=== PATIENT | male | born 1975 | race Caucasian/White ===

== ENCOUNTER 2019-10-09 03:22 | Emergency (ER) | payer OTHER ==
[~2019-10-09] VITALS: Ht 182.9 cm; Wt 111.1 kg
[~2019-10-09 03:22] MED LIST: ALBIPROI INH; AMIT75 PO; AMOX500 PO; AMOX875 PO; CALPRATL TP; CEPH500 PO; CITA20 PO; CRUTCH3 USE; CYCL10 PO; DEXGUASY PO; DICY20 PO; DIPH25; GLYB1.5 PO; HYDACE5 PO; IBUP600 PO; LAMO25 PO; LISI20 PO; LISI5 PO; LORA10ER PO; META400 PO; METF500 PO; NAPR500 PO; NAPR550 PO; NEOPOLHYDS OT; OMEP20ER PO; ONDA4ODT MM; OTC MEDS; PRED20 PO; PROC10 PO; PROM25 PO; PROM25S PR; RXCEPH500 PO; RXDIPATR PO; RXNAPNA550 PO; RXTRAM50 PO; SIMV5 PO; SULTRIDS PO; TRAM50 PO; TRAZ100 PO; TYLENOL
[2019-10-09] MEDS ORDERED: VOLTAREN100 GM TOP (03:51)
== END 2019-10-09 04:11 | disposition home or self-care (01) ==
LOC: ER 03:22
DX: M25.511 Pain in right shoulder (principal); Z88.5 Allergy status to narcotic agent; Z79.899 Other long term (current) drug therapy; F17.200 Nicotine dependence, unspecified, uncomplicated; E11.9 Type 2 diabetes mellitus without complications; F31.9 Bipolar disorder, unspecified
CPT/HCPCS: 96372; 99283-25; J1885

== ENCOUNTER → 2020-07-24 | Outpatient (CLI) | payer OTHER ==
[~2020-07-24] MED LIST changes: +ACET500 PO; +Celexa40 MG PO; +LAMICTAL5 M1; +LAMO100 PO; +LOPE2C PO; +TRIA15CR3; +VOLTAREN100 GM TOP
== END | disposition home or self-care (01) ==
LOC: LAB SHORT 08:52 → LAB EV 08:52
DX: L73.9 Follicular disorder, unspecified (principal)
CPT/HCPCS: 87070; 87077; 87147; 87186; 87205

== ENCOUNTER 2021-03-22 18:47 | Emergency (ER) | payer OTHER ==
[~2021-03-22] VITALS: Ht 182.9 cm; Wt 114.3 kg
[2021-03-22] MEDS ORDERED: LIDO700A20 TOP (19:20)
== END 2021-03-22 19:40 | disposition home or self-care (01) ==
LOC: ER 18:47
DX: S39.012A Strain of muscle, fascia and tendon of lower back, initial encounter (principal); E11.9 Type 2 diabetes mellitus without complications; Z79.899 Other long term (current) drug therapy; Z88.5 Allergy status to narcotic agent
CPT/HCPCS: 96372; 99283-25; A9270; J1885

== ENCOUNTER 2022-01-29 08:47 | Day surgery (SDC) | payer OTHER ==
[~2022-01-29] VITALS: Ht 182.9 cm; Wt 127.9 kg
[~2022-01-29 08:47] MED LIST changes: +LIDO700A20 TOP
== END 2022-01-29 13:32 | disposition home or self-care (01) ==
LOC: ORSCSDS 08:47
PROVIDERS: Orthopaedic Surgery
PROC: 0SBD4ZZ Excision of Left Knee Joint, Percutaneous Endoscopic Approach (ICD-10-PCS; principal; 2022-01-29 10:45)
DX: S83.512A Sprain of anterior cruciate ligament of left knee, initial encounter (principal); G47.33 Obstructive sleep apnea (adult) (pediatric); F31.9 Bipolar disorder, unspecified; K21.9 Gastro-esophageal reflux disease without esophagitis; E66.9 Obesity, unspecified; Z68.38 Body mass index [BMI] 38.0-38.9, adult; Z87.891 Personal history of nicotine dependence; Z79.899 Other long term (current) drug therapy
CPT/HCPCS: J0690; J1100; J1885; J2405; J2704; J3010

== ENCOUNTER → 2022-07-10 | Outpatient (CLI) | payer OTHER ==
[2022-07-10 11:41] LABS: BASOPHILS ABSOLUTE AUTO 0.01 K/mm3 (0.00-0.23); BASOPHILS PERCENT AUTO 0 % (0-2); EOSINOPHILS ABSOLUTE AUTO 0.12 K/mm3 (0.00-0.68); EOSINOPHILS PERCENT AUTO 3 % (0-6); Hematocrit 42.5 % (37.0-53.0); Hemoglobin 14.9 g/dL (13.5-17.5); IMMATURE GRAN ABSOLUTE AUTO 0.01 K/mm3 (0.00-0.10); IMMATURE GRAN PERCENT AUTO 0 % (0-1); LYMPHOCYTES ABSOLUTE AUTO 1.32 K/mm3 (0.84-5.20); LYMPHOCYTES PERCENT AUTO 34 % (21-46); MONOCYTES ABSOLUTE AUTO 0.38 K/mm3 (0.16-1.47); MONOCYTES PERCENT AUTO 10 % (4-13); Mean Corpuscular HGB 31.4 pg (26.0-34.0); Mean Corpuscular HGB Conc 35.1 g/dL (31.5-36.5); Mean Corpuscular Volume 90 fL (80-100); Mean Platelet Volume 9.3 fL (9.1-12.4); NEUTROPHILS ABSOLUTE AUTO 2.05 K/mm3 (1.96-9.15); NEUTROPHILS PERCENT AUTO 53 % (41-73); Platelet Count 201 K/mm3 (150-400); RDW Coefficient Variation 12.3 % (11.7-14.2); RDW Standard Deviation 40.1 fL (35.1-46.3); Red Blood Cell Count 4.75 M/mm3 (4.30-5.90); White Blood Cell Count 3.89 K/mm3 (4.00-11.30)
[2022-07-10 11:50] LABS: Albumin, Blood 3.8 g/dL (3.4-5.0); Bilirubin, Total 0.4 mg/dL (0.1-1.0); Bun/Creatinine Ratio 15.5 (12.0-20.0); Calcium, Blood 8.6 mg/dL (8.5-10.1); Creatinine, Blood 1.1 mg/dL (0.60-1.20); Globulin, Blood 3.7 g/dL (2.2-4.0); Potassium, Blood 3.8 mmol/L (3.5-5.5); Total Protein, Blood 7.5 g/dL (6.4-8.2)
== END ==
LOC: LAB 11:35 → LAB SHORT 11:35
PROVIDERS: General Practice
DX: E86.0 Dehydration (principal)
CPT/HCPCS: 80053; 82150; 85025

== ENCOUNTER → 2022-09-02 | Outpatient (CLI) | payer OTHER | LOC: PLD 14:00 → LAB SHORT 14:00 | DX: R21 Rash and other nonspecific skin eruption (principal) | CPT/HCPCS: 88312 ==

== ENCOUNTER 2023-12-17 18:10 | Emergency (ER) | payer OTHER ==
[~2023-12-17] VITALS: Ht 182.9 cm; Wt 131.5 kg
[~2023-12-17 18:10] MED LIST changes: +HYDROXYZINE HYDROCHLORIDE; +OMEPRAZOL RX 20MG CA
[2023-12-17 18:27] VITALS: BP 141/84
[2023-12-17] MEDS ORDERED: Ketorolac Tromethamine 30mg Vial IM ONE (20:40)
[2023-12-17] MEDS ORDERED: Naprosyn500 MG PO (20:41)
== END 2023-12-17 20:56 | disposition home or self-care (01) ==
LOC: ER 18:10
DX: M25.562 Pain in left knee (principal); G89.29 Other chronic pain; E11.9 Type 2 diabetes mellitus without complications; F31.9 Bipolar disorder, unspecified; Z88.5 Allergy status to narcotic agent; Z79.899 Other long term (current) drug therapy; Z87.891 Personal history of nicotine dependence; Z98.890 Other specified postprocedural states
CPT/HCPCS: 96372; 99283-25; J1885

== ENCOUNTER → 2024-03-07 | Outpatient (CLI) | payer OTHER ==
[~2024-03-07] MED LIST changes: +Naprosyn500 MG PO
[2024-03-07 17:28] LABS: Body Fluid Crystals NEG (NEGATIVE)
[2024-03-07 17:57] LABS: RBC Count, Synovial Fluid 206 /mm3 (0-0); WBC Count, Synovial Fluid 139 /mm3 (0-180)
[2024-03-07 18:56] LABS: Lymphs, Synovial Fluid 30 % (0-15); Monocytes/Macrophages, Synovia 60 % (0-65); Neutrophils, Synovial Fluid 10 % (0-24)
[2024-03-07 19:02] LABS: Appearance, Synovial Fluid Hazy (Clear); Color, Synovial Fluid Yellow (None-P Yel)
== END | disposition home or self-care (01) ==
LOC: LAB SHORT 15:50
PROVIDERS: Orthopaedic Surgery
DX: M17.12 Unilateral primary osteoarthritis, left knee (principal)
CPT/HCPCS: 87070; 87075; 87205; 89051; 89060

== ENCOUNTER 2024-12-02 15:41 | Emergency (ER) | payer OTHER ==
[~2024-12-02] VITALS: Ht 182.9 cm; Wt 117.5 kg
[2024-12-02 15:53] VITALS: BP 128/86
[2024-12-02] MEDS ORDERED: METFORMIN HCL500 M3 PO (16:13)
[2024-12-02] MEDS ORDERED: [UNRECOGNIZED DRUG - CODE] PO (16:13)
[2024-12-02] MEDS ORDERED: CELEXA40 M9 PO (16:13)
[2024-12-02] MEDS ORDERED: LAMOTRIGINE100 M1 PO (16:13)
[2024-12-02] MEDS ORDERED: OMEP20ER PO (16:13)
[2024-12-02] MEDS ORDERED: Diphth,Pertuss(Acell),Tet Vac 0.5 ML VIAL IM ONE (17:10)
== END 2024-12-02 17:53 | disposition home or self-care (01) ==
LOC: ER 15:41
DX: S61.211A Laceration without foreign body of left index finger without damage to nail, initial encounter (principal); W26.0XXA Contact with knife, initial encounter; Z87.891 Personal history of nicotine dependence; Z79.899 Other long term (current) drug therapy; Z88.5 Allergy status to narcotic agent
CPT/HCPCS: 12001; 90471; 90715; 99282-25

== ENCOUNTER 2024-12-07 11:36 | Emergency (ER) | payer OTHER ==
[~2024-12-07] VITALS: Ht 182.9 cm; Wt 117.5 kg
[~2024-12-07 11:36] MED LIST changes: +CELEXA40 M9 PO; +LAMOTRIGINE100 M1 PO; +METFORMIN HCL500 M3 PO; +[UNRECOGNIZED DRUG - CODE] PO
[2024-12-07 12:15] VITALS: BP 133/85
[2024-12-07 13:22] LABS: BASOPHILS ABSOLUTE AUTO 0.01 K/mm3 (0.00-0.23); BASOPHILS PERCENT AUTO 0 % (0-2); EOSINOPHILS ABSOLUTE AUTO 0.02 K/mm3 (0.00-0.68); EOSINOPHILS PERCENT AUTO 1 % (0-6); Hematocrit 33.6 % (37.0-53.0); Hemoglobin 11.7 g/dL (13.5-17.5); IMMATURE GRAN ABSOLUTE AUTO 0.01 K/mm3 (0.00-0.10); IMMATURE GRAN PERCENT AUTO 0 % (0-1); LYMPHOCYTES PERCENT AUTO 19 % (21-46); MONOCYTES ABSOLUTE AUTO 0.34 K/mm3 (0.16-1.47); MONOCYTES PERCENT AUTO 8 % (4-13); Mean Corpuscular HGB 31.6 pg (26.0-34.0); Mean Corpuscular HGB Conc 34.8 g/dL (31.5-36.5); Mean Corpuscular Volume 91 fL (80-100); Mean Platelet Volume 9.4 fL (9.1-12.4); NEUTROPHILS PERCENT AUTO 73 % (41-73); Platelet Count 188 K/mm3 (150-400); RDW Coefficient Variation 12.1 % (11.7-14.2); RDW Standard Deviation 40.6 fL (35.1-46.3); White Blood Cell Count 4.28 K/mm3 (4.00-11.30)
[2024-12-07 13:58] LABS: Albumin/Globulin Ratio 0.7 (0.8-1.8); Bilirubin, Total 0.4 mg/dL (0.1-1.0); Bun/Creatinine Ratio 14.7 (12.0-20.0); Calcium, Blood 8.6 mg/dL (8.5-10.1); Creatinine, Blood 1.02 mg/dL (0.60-1.20); Globulin, Blood 4.5 g/dL (2.2-4.0); Potassium, Blood 3.9 mmol/L (3.5-5.5); Total Protein, Blood 7.5 g/dL (6.4-8.2)
== END 2024-12-07 14:13 | disposition home or self-care (01) ==
LOC: ER 11:36
PROVIDERS: Student in an Organized Health Care Education/Training Program
DX: L03.012 Cellulitis of left finger (principal); S60.022A Contusion of left index finger without damage to nail, initial encounter; W26.0XXA Contact with knife, initial encounter; Z88.5 Allergy status to narcotic agent; Z79.899 Other long term (current) drug therapy; Z79.84 Long term (current) use of oral hypoglycemic drugs; E11.9 Type 2 diabetes mellitus without complications; F17.290 Nicotine dependence, other tobacco product, uncomplicated; F17.220 Nicotine dependence, chewing tobacco, uncomplicated
CPT/HCPCS: 80053; 85025; 99283

== ENCOUNTER 2024-12-14 08:54 | Inpatient (IN) | payer OTHER ==
[~2024-12-14] VITALS: Ht 182.9 cm; Wt 117.5 kg
[2024-12-14] VITALS (13 sets, daily range): BP systolic 113–160; BP diastolic 72–99
[2024-12-14] MEDS ORDERED: Ketorolac Tromethamine 15mg Vial IV ONE (09:45)
[2024-12-14] MEDS ORDERED: NS 1,000 ML IV SCH (09:45)
[2024-12-14 10:10] LABS: BASOPHILS ABSOLUTE AUTO 0.01 K/mm3 (0.00-0.23); BASOPHILS PERCENT AUTO 0 % (0-2); EOSINOPHILS ABSOLUTE AUTO 0.03 K/mm3 (0.00-0.68); EOSINOPHILS PERCENT AUTO 1 % (0-6); Hematocrit 34.1 % (37.0-53.0); IMMATURE GRAN ABSOLUTE AUTO 0.03 K/mm3 (0.00-0.10); IMMATURE GRAN PERCENT AUTO 1 % (0-1); LYMPHOCYTES PERCENT AUTO 39 % (21-46); MONOCYTES ABSOLUTE AUTO 0.45 K/mm3 (0.16-1.47); MONOCYTES PERCENT AUTO 11 % (4-13); Mean Corpuscular HGB 31.2 pg (26.0-34.0); Mean Corpuscular HGB Conc 35.2 g/dL (31.5-36.5); Mean Corpuscular Volume 89 fL (80-100); Mean Platelet Volume 8.7 fL (9.1-12.4); NEUTROPHILS ABSOLUTE AUTO 1.97 K/mm3 (1.96-9.15); NEUTROPHILS PERCENT AUTO 48 % (41-73); Platelet Count 277 K/mm3 (150-400); RDW Standard Deviation 38.7 fL (35.1-46.3); Red Blood Cell Count 3.85 M/mm3 (4.30-5.90); White Blood Cell Count 4.09 K/mm3 (4.00-11.30)
[2024-12-14 10:41] LABS: Albumin, Blood 3.4 g/dL (3.4-5.0); Albumin/Globulin Ratio 0.8 (0.8-1.8); Bilirubin, Total 0.3 mg/dL (0.1-1.0); Bun/Creatinine Ratio 20.2 (12.0-20.0); C-REACTIVE PROTEIN, EXT RANGE 0.882 mg/dL (0.000-0.300); Calcium, Blood 9.4 mg/dL (8.5-10.1); Creatinine, Blood 0.94 mg/dL (0.60-1.20); Globulin, Blood 4.4 g/dL (2.2-4.0); Potassium, Blood 4.3 mmol/L (3.5-5.5); Total Protein, Blood 7.8 g/dL (6.4-8.2)
[2024-12-14] MEDS ORDERED: Ampicillin Sod/Sulbactam Sod 1.5 GM in NS 100 ML IV ONE (11:25)
[2024-12-14] MEDS ORDERED: Ondansetron HCl 2 MG / ML 2ML Vial IV PRN (12:45)
[2024-12-14] MEDS ORDERED: FLU VACC TS2024-25(6MOS UP)/PF 45 MCG/0.5 ML SYRINGE IM PRN (12:45)
[2024-12-14] MEDS ORDERED: Ampicillin Sod/Sulbactam Sod 3 GM in NS 100 ML IV SCH (12:49)
[2024-12-14] MEDS ORDERED: Lactated Ringer's 1,000 ML IV SCH (13:05)
[2024-12-14] MEDS ORDERED: propofoL 20 ML IV ONE (14:15)
[2024-12-14] MEDS ORDERED: Lidocaine HCl 2% 20 ML MDV ONE (14:16)
[2024-12-14] MEDS ORDERED: FentaNYL Citrate 50 MCG/ML 2 ML Injection ONE (14:16)
[2024-12-14] MEDS ORDERED: Phenylephrine HCl 100 MCG/ML-NS 10MLSYR (1MG/10ML) ONE (14:20)
[2024-12-14] MEDS ORDERED: Ketorolac Tromethamine 30mg Vial ONE (14:28)
[2024-12-14] MEDS ORDERED: HYDROmorphone HCl/Pf 1MG SYR ONE ×2 (14:41→14:42)
[2024-12-14] MEDS ORDERED: Ketorolac Tromethamine 15mg Vial IV PRN (16:00)
[2024-12-14] MEDS ORDERED: NS 250 ML IV PRN (16:50)
--- NOTE | 2024-12-14 16:54 | NUR ---
POST OP S/P LEFT INDEX FINGER I&D. KITTY WRAP IS CDI AND GRAHAM ELEVATED ON PILLOWS. PT REPORTS MILD THROBBING, BUT DECLINES NEED FOR PAIN MEDICATIONS. PT DID GET NAUSEATED WITH X1 SMALL EMESIS WITH MOVEMENT FROM GURNEY TO BED. ZOFRAN GIVEN PER ORDERS. SBA. POST OP VSS AND IN PROGRESS. ORIENTED TO ROOM AND CALL LIGHT. CURRENTLY SIPPING ON ICE WATER AND EATING CRACKERS.
[2024-12-14] MEDS ORDERED: HYDROcodone 5-APAP 325 TAB PO PRN (17:05)
[2024-12-14] MEDS ORDERED: Insulin Regular 100 UNIT/ML 10ML Vial SC SCH ×2 (18:00→21:00)
[2024-12-14] MEDS ORDERED: QUEtiapine Fumarate 200 MG Tab PO SCH (21:00)
[2024-12-14] MEDS ORDERED: Lactobacil 2-S.Thermo-Bifido 1 1 Cap PO SCH (21:00)
[2024-12-14] MEDS ORDERED: LamoTRIgine 100 MG Tab PO SCH (21:00)
--- NOTE | 2024-12-15 04:29 | NUR ---
SHIFT SUMMARY HANK WAS ALERT AND FULLY ORIENTED ON ASSESMENT AND ABLE TO BE INDEPENDENT IN THE ROOM. PT PAIN MODERATELY WELL CONTROLLED, PT DOES NOT WISH TO TAKE OPIOID PAIN MEDS. PT DRESSING TO L HAND C/D/I, CAP REFIL <3 SECONDS, SENSATION INTACT. NO ACUTE EVENTS TONIGHT, NO NOTED CHANGES TO PT CONDITION.
[2024-12-15 05:25] VITALS: BP 142/92
[2024-12-15] MEDS ORDERED: Omeprazole 20 MG CapCR PO SCH (06:00)
[2024-12-15 06:01] LABS: BASOPHILS ABSOLUTE AUTO 0.01 K/mm3 (0.00-0.23); BASOPHILS PERCENT AUTO 0 % (0-2); EOSINOPHILS PERCENT AUTO 0 % (0-6); Hematocrit 31.9 % (37.0-53.0); Hemoglobin 11.2 g/dL (13.5-17.5); IMMATURE GRAN ABSOLUTE AUTO 0.03 K/mm3 (0.00-0.10); IMMATURE GRAN PERCENT AUTO 1 % (0-1); LYMPHOCYTES PERCENT AUTO 25 % (21-46); MONOCYTES ABSOLUTE AUTO 0.34 K/mm3 (0.16-1.47); MONOCYTES PERCENT AUTO 8 % (4-13); Mean Corpuscular HGB 31.4 pg (26.0-34.0); Mean Corpuscular HGB Conc 35.1 g/dL (31.5-36.5); Mean Corpuscular Volume 89 fL (80-100); Mean Platelet Volume 8.4 fL (9.1-12.4); NEUTROPHILS ABSOLUTE AUTO 3.01 K/mm3 (1.96-9.15); NEUTROPHILS PERCENT AUTO 67 % (41-73); Platelet Count 262 K/mm3 (150-400); RDW Coefficient Variation 11.9 % (11.7-14.2); RDW Standard Deviation 38.4 fL (35.1-46.3); Red Blood Cell Count 3.57 M/mm3 (4.30-5.90); White Blood Cell Count 4.49 K/mm3 (4.00-11.30)
[2024-12-15 06:17] LABS: Bun/Creatinine Ratio 17.2 (12.0-20.0); Calcium, Blood 8.6 mg/dL (8.5-10.1); Creatinine, Blood 0.99 mg/dL (0.60-1.20); Potassium, Blood 4.3 mmol/L (3.5-5.5)
[2024-12-15 07:09] VITALS: BP 131/81
[2024-12-15] MEDS ORDERED: Insulin Regular 100 UNIT/ML 10ML Vial SC SCH (07:30)
[2024-12-15] MEDS ORDERED: Citalopram Hydrobromide 20 MG Tab PO SCH (09:00)
[2024-12-15] MEDS ORDERED: VISBIOME 112.51 EACH PO (13:17)
[2024-12-15] MEDS ORDERED: ACET325 PO (13:18)
[2024-12-15] MEDS ORDERED: SULTRIDS PO (13:18)
--- NOTE | 2024-12-15 14:50 | NUR ---
DISCHARGE NOTE PT IS ALERT, RESPONSIVE, AND COOPERATIVE. TOLERATING CONS CARB DIET, VOIDING, AMBULATING INDEPENDENTLY. DRESSING TO L HAND C/D/I, UNABLE TO VISUALIZE INDEX FINGER DUE TO DRESSING BUT PT DENIES NUMBNESS TO L HAND. PAIN IS TOLERABLE W/O PAIN MEDS. IV ABX GIVEN ORDERED. PT TO CALL DR. STEEL OFFICE ON TUESDAY FOR DRESSING CHANGE. CHARGE NURSE REVIEWED D/C INSTRUCTIONS, COPY GIVEN TO PT. MEDS FAXED TO [facility]. [place]. PT DC'D IN STABLE CONDITION, OPTED TO AMBULATE OUT, W/ ALL BELONGINGS IN HAND.
== END 2024-12-15 14:43 | disposition home or self-care (01) | DRG 513 ==
LOC: ER 08:54 → SURS 12:41
PROVIDERS: Orthopaedic Surgery; Student in an Organized Health Care Education/Training Program; ADMIT Family Medicine
PROC: 0L980ZZ Drainage of Left Hand Tendon, Open Approach (ICD-10-PCS; principal; 2024-12-14 13:30)
DX: M65.842 Other synovitis and tenosynovitis, left hand (principal); L03.114 Cellulitis of left upper limb; L03.012 Cellulitis of left finger; F31.9 Bipolar disorder, unspecified; E11.9 Type 2 diabetes mellitus without complications; M79.89 Other specified soft tissue disorders; Z98.890 Other specified postprocedural states; Z87.891 Personal history of nicotine dependence; Z79.84 Long term (current) use of oral hypoglycemic drugs; Z79.899 Other long term (current) drug therapy; Z88.5 Allergy status to narcotic agent
CPT/HCPCS: 36415; 73130; 73201; 80048; 80053; 82947; 85025; 85651; 86140; 87070; 87075; 87205; 96374; 99285-25; A9270; J0295; J1171; J1885; J2371; J2405; J2704; J3010; J7030; J7050; J7120; Q9967